=== PATIENT | female | born 1995 | race Caucasian/White ===

== ENCOUNTER 2021-09-24 08:42 | Outpatient (CLI) | payer OTHER ==
--- NOTE | 2021-09-24 16:51 | MRI Report ---
PROCEDURE: Shoulder LT W/O INDICATIONS: PAIN IN SHOULDER TECHNIQUE: Noncontrast oblique coronal T2 fast spin echo with fat saturation, oblique sagittal T1 spin echo and T2 fast spin echo with fat saturation, axial T1 spin echo and T2 fast spin echo with fat saturation t hrough the shoulder. COMPARISON: None. FINDINGS: Image quality: Excellent. Rotator cuff: The supraspinatus, infraspinatus, and subscapularis tendons appear intact. Mild to mo derate supraspinous and subscapularis tendinosis. No rotator cuff muscle atrophy on sagittal images. Bones and bursae: No bone marrow contusions or fractures. Mild acromioclavicular joint degeneration. The acromion demonstrates conventional anatomy, without an os acromiale. Small subacromial-subdelto id bursal fluid is present. Capsule and soft tissues: In the absence of intra-articular contrast, the labrum and glenohumeral li gaments appear intact. The long head of the biceps tendon demonstrates normal location and morpholog y. The rotator interval appears normal, without fibrosis. The coracohumeral ligament is thickened. IMPRESSION: 1. [id number] supraspinous and subscapularis tendinosis. 2. Small subacromial-subdeltoid bursal fluid suggesting mild bursitis. 3. Mild acromioclavicular joint degeneration. 4. Thickening of coracohumeral ligament. This finding may be associated with adhesive capsulitis. Rec [facility] clinical correlation. Reviewed by: Osmin Blanco MD on 09/24/2021 4:50 PM PDT Approved by: Osmin Blanco MD on 09/24/2021 4:50 PM PDT Station ID: [id number]
== END 2021-09-24 08:43 | disposition home or self-care (01) ==
LOC: DI 08:42
PROVIDERS: ATTEND Student in an Organized Health Care Education/Training Program
DX: M75.92 Shoulder lesion, unspecified, left shoulder (principal); M19.012 Primary osteoarthritis, left shoulder

== ENCOUNTER 2021-11-21 08:00 | Outpatient (CLI) | payer OTHER ==
[2021-11-21 23:20] LABS: BACTERIAL VAGINOSIS DNA NEGATIVE (NEGATIVE); CANDIDA GLABRATA DNA NEGATIVE (NEGATIVE); CANDIDA GROUP DNA NEGATIVE (NEGATIVE); CANDIDA KRUSEI DNA NEGATIVE (NEGATIVE); TRICHOMONAS VAGINALIS DNA NEGATIVE (NEGATIVE)
== END 2021-11-21 23:59 | disposition home or self-care (01) ==
LOC: LAB.N 08:00
PROVIDERS: ATTEND Family Medicine
DX: N76.0 Acute vaginitis (principal)
CPT/HCPCS: 81514